=== PATIENT | female | born 1980 | race Two or more races ===

== ENCOUNTER → 2018-05-09 | Outpatient (CLI) | payer OTHER, MEDICAID | LOC: FIMAGING 12:36 | PROVIDERS: ATTEND Family Medicine | DX: D25.9 Leiomyoma of uterus, unspecified (principal); E03.9 Hypothyroidism, unspecified; N92.0 Excessive and frequent menstruation with regular cycle; Z68.35 Body mass index [BMI] 35.0-35.9, adult ==

== ENCOUNTER 2018-09-14 05:44 | Day surgery (SDC) | payer OTHER, MEDICAID | END 2018-09-14 11:40 | disposition home or self-care (01) | LOC: FSGY 05:44 ==